=== PATIENT | female | born 1945 | race Caucasian/White ===

== ENCOUNTER 2016-10-30 13:47 | Emergency (ER) | payer MEDICARE ==
[~2016-10-30 13:47] MED LIST: Iopamidol 370 76% 100 ML VIAL ONE
[2016-10-30] MEDS ORDERED: Sodium Chloride 0.9% 1,000 ML ONE (14:25)
[2016-10-30 14:30] LABS: #Basophils 0.1 thou/uL (0.0-0.2); #Eosinphils 0.1 thou/uL (0.0-0.7); #Lymphocytes 1.5 thou/uL (1.20-3.40); #Monocytes 0.3 thou/uL (0.11-0.59); #Neutrophils 2.6 thou/uL (1.40-6.50); %Basophils 1.3 % (0.0-1.0); %Eosinophils 2.2 % (0.0-10.0); %Lymphocytes 32.3 % (21.0-51.0); %Monocytes 5.5 % (0.0-10.0); %Neutrophils 58.6 % (42.0-75.0); Hemoglobin 12.3 g/dL (12.0-16.0); Mean Corpuscular HGB CONC 31.4 g/dL (32.0-36.0); Mean Corpuscular Volume 89.4 fl (81.0-99.0); Mean Platelet Volume 9.4 fL (7.4-10.4); Platelet Count 231 thou/uL (130-400); White Blood Cell (WBC) Count 4.5 thou/uL (4.8-10.8)
[2016-10-30] MEDS ORDERED: Ondansetron HCl/PF 4 MG/2 ML Vial ONE (14:35)
[2016-10-30 14:42] LABS: PTT 34.1 SEC (22.9-36.1); Prothrombin Time 13.2 SEC (12.0-14.7)
[2016-10-30 14:44] LABS: ALT (SGPT) 9 U/L (0-55); AST (SGOT) 17 U/L (5-34); Albumin 4.2 g/dL (3.4-4.8); Alkaline Phosphatase 131 U/L (40-150); Anion Gap 16 mmol/L (10-20); BUN (Urea Nitrogen) 9 mg/dL (9.8-20.1); Bilirubin, Total 0.3 mg/dL (0.2-1.2); Calc. Creatinine Clearance 0 mL/min (70-130); Calcium 9.3 mg/dL (7.8-10.44); Carbon Dioxide 23 mmol/L (23-31); Chloride 104 mmol/L (98-107); D-Dimer Test 0.95 *mcg/mL (0.27-0.43); Estimated GFR-MDRD 47; Globulin 3.2 g/dL (2.4-3.5); Glucose 107 mg/dL (80-115); Potassium 4.1 mmol/L (3.5-5.1); Protein, Total 7.4 g/dL (5.8-8.1); Sodium 139 mmol/L (136-145)
[2016-10-30 14:45] LABS: Troponin I Less than 0.010 ng/mL (< 0.028)
--- NOTE | 2016-10-30 14:51 | CT ---
HEAD CT: Indication: New onset headache with nausea and vomiting. Comparison: None. FINDINGS: Mild parenchymal atrophy with compensatory dilatation of the ventricular system. There is no intrac ranial hemorrhage, mass effect, or midline shift. Mild vascular ischemic disease is present. IMPRESSION: 1. No acute intracranial hemorrhage or mass effect. 2. Mild chronic microvascular ischemic disease and mild parenchymal atrophy. POS: [facility]
[2016-10-30 15:04] LABS: Bilirubin Negative (Negative); Blood, Urine Small (Negative); Clarity Clear (Clear); Glucose, Urine (Dipstick) Negative (Negative); Leukocyte Negative (Negative); Nitrite Negative (Negative); Protein, Urine (Dipstick) 100 mg/dL (Neg-Trace); Specific Gravity, Urine 1.015 (1.005-1.030); Urobilinogen 0.2 mg/dL (0.2-1.0)
[2016-10-30 15:12] LABS: Bacteria/HPF Rare-Few HPF (None Seen); Squamous Epithelial 0-3 HPF (0-3); WBC/HPF 0-3 HPF (0-3)
[2016-10-30] MEDS ORDERED: Meclizine HCl 25 MG TAB ONE (15:49)
--- NOTE | 2016-10-30 15:53 | CT ---
CT ARTERIOGRAM CHEST WITH IV CONTRAST AND 3D MIP IMAGING: Date: 10/30/16 HISTORY: Chest pain. Dyspnea. FINDINGS: There is good contrast opacification of pulmonary arteries and thoracic aorta. Mild atelectasis is p resent at each lung base. No pneumothorax, pleural fluid, or mediastinal adenopathy are apparent. IMPRESSION: No CT evidence of pulmonary embolus. POS: [facility]
== END 2016-10-30 16:25 | disposition home or self-care (01) ==
LOC: NAV ERS 13:47
DX: R42 Dizziness and giddiness (principal); E78.5 Hyperlipidemia, unspecified; F41.9 Anxiety disorder, unspecified; Z79.899 Other long term (current) drug therapy
CPT/HCPCS: 36415; 70450; 71275; 80053; 81003; 81015; 82553; 84484; 85025; 85379; 85610; 85730; 93005; 94760; 96361; 96374; J2405; J7050

== ENCOUNTER 2018-08-06 19:14 | Emergency (ER) | payer MEDICARE ==
[2018-08-06] MEDS ORDERED: Ondansetron ODT 4 MG TAB ONE (20:41)
== END 2018-08-06 20:57 | disposition home or self-care (01) ==
LOC: NAV ERS 19:14
DX: R51 Headache (principal); R11.2 Nausea with vomiting, unspecified; F41.9 Anxiety disorder, unspecified; E78.5 Hyperlipidemia, unspecified
CPT/HCPCS: 99283; Q0162

== ENCOUNTER 2018-08-31 23:11 | Emergency (ER) | payer MEDICARE ==
[2018-08-31] MEDS ORDERED: Bacitracin Zinc 1 Packet ONE (23:57)
[2018-08-31] MEDS ORDERED: Doxycycline 100 MG CAP ONE (23:57)
[2018-08-31] MEDS ORDERED: Adacel (T-DAP) 0.5 ML SYRINGE ONE (23:58)
== END 2018-09-01 00:13 | disposition home or self-care (01) ==
LOC: NAV ERS 23:11
DX: S60.511A Abrasion of right hand, initial encounter (principal); E78.5 Hyperlipidemia, unspecified; F41.9 Anxiety disorder, unspecified; Z79.899 Other long term (current) drug therapy; W55.01XA Bitten by cat, initial encounter
CPT/HCPCS: 90471; 90715

== ENCOUNTER 2019-07-09 11:46 | Outpatient (CLI) | payer MEDICARE ==
--- NOTE | 2019-07-09 12:01 | RAD ---
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 No acute fracture, dislocation, or other acute osseous abnormality is identified. There is osteopenia. IMPRESSION: No acute osseous abnormality is identified.
== END 2019-07-09 11:47 | disposition home or self-care (01) ==
LOC: NAV RAD 11:46
PROVIDERS: ATTEND Nurse Practitioner Adult Health
DX: M25.532 Pain in left wrist (principal)